=== PATIENT | female | born 2000 | race Caucasian/White ===

== ENCOUNTER 2024-09-19 11:58 | Emergency (ER) | payer OTHER, SELFPAY ==
[2024-09-19 12:02] VITALS: BP 137/89
[2024-09-19 12:33] VITALS: BMI 43.0
[2024-09-19 13:13] LABS: % Basophils 0.4 % (0-2); % Eosinophils 1.5 % (0-6); % Immature Granulocytes 0.4 % (0-0.5); % Lymphocytes 25.1 % (20.5-51.1); % Monocytes 6.6 % (1.7-9.3); Absolute Eosinophils 0.1 10^3/uL (0-0.7); Absolute Lymphocytes 2.1 10^3/uL (1.2-3.4); Absolute Monocytes 0.5 10^3/uL (0.1-0.6); Absolute Neutrophils 5.4 10^3/uL (1.4-6.5); Hematocrit 39.2 % (37.0-47.0); Hemoglobin 13.3 g/dL (12.0-16.0); Mean Corp Hgb Conc. 33.9 g/dL (33.0-37.0); Mean Corpuscular Hgb 28.5 pg (27.0-31.0); Mean Corpuscular Volume 84.1 fL (81.0-99.0); Mean Platelet Volume 8.8 fL (7.4-10.4); Nucleated Red Blood Cells % 0 %; Platelet Count 283 10^3/uL (130-400); Red Blood Cell Count 4.66 10^6/uL (4.20-5.40); Red Cell Dist. Width 12.4 % (11.5-14.5); White Blood Cell Count 8.2 10^3/uL (4.8-10.8)
[2024-09-19 13:25] LABS: HCG, Serum Qualitative Screen Negative
[2024-09-19 13:29] LABS: ALT (SGPT) 17 U/L (0-35); AST (SGOT) 19 U/L (14-36); Alkaline Phosphatase 65 U/L (38-126); Blood Urea Nitrogen 14 mg/dl (7-17); Calcium 9.5 mg/dl (8.4-10.2); Carbon Dioxide 22 mmol/L (22-30); Chloride 104 mmol/L (98-107); Estimated Creatinine Clearance > 125 ml/min; Glucose 106 mg/dl (70-99); Potassium 4.8 mmol/L (3.5-5.1); Sodium 140 mmol/L (135-145); Total Bilirubin 0.2 mg/dl (0.2-1.3); Total Protein 6.9 g/dl (6.3-8.2); eGFR > 60.00
[2024-09-19 13:36] VITALS: BP 124/90
--- NOTE | 2024-09-19 14:28 | ED.GENMED ---
History of Present Illness
General
Chief Complaint: Abdominal Symptoms
Source: patient
Time Seen by Provider: 09/19/24 12:15
History of Present Illness
History of Present Illness:
24-year-old female presents for evaluation of bright blood per rectum. Patient states that she is experienced blood when she had a bowel movement. There is normal stool as well as bright red blood. They are not admixed. No abdominal pain. No
nausea or vomiting. Patient does not take any oral anticoagulants.
Phy Exam
Physical Exam
Physical Exam:
General: Awake, Alert, Oriented X3. No acute distress.
Vitals: unremarkable
Head: Atraumatic
Eyes: Pupils equal, EOMI
Throat: Airway intact, no exudates
Neck: Trachea midline
Lungs: Clear and equal b/l
Heart: Regular rate, no murmurs
Abd: Soft, Nontender, No pulsatile mass
Rectal: Normal external exam, no blood or stool in the vault
Neuro: Nonfocal
Skin: Warm, dry, no rash
Extremities: pulses equal b/l, no edema
Course
Orders/Labs/Results
Orders:
Orders
09/19/24 12:57
Test Result ONCE
09/19/24 13:01
Complete Blood Count/With Diff Urgent
Comprehensive Metabolic Panel Urgent
HCG, Serum Qualitative Screen Urgent
Abnormal Lab Results
09/19/24
13:01
Glucose 106 H mg/dl
(70-99)
09/19/24 13:01
09/19/24 13:01
Vital Signs
Initial and Last Documented VS:
Initial Vital Signs
Temp Pulse Resp BP Pulse Ox
98 F 68 16 137/89 97
09/19/24 12:02 09/19/24 12:02 09/19/24 12:02 09/19/24 12:02 09/19/24 12:02
Last Documented Vital Signs
Temp Pulse Resp BP Pulse Ox
98 F 68 16 124/90 97
09/19/24 12:02 09/19/24 13:36 09/19/24 13:36 09/19/24 13:36 09/19/24 12:02
MDM/Problems Addressed
Differential Diagnosis Includes:
Anal fissure, internal hemorrhoids, colitis
MDM/Problems Addressed:
Patient has a very benign abdominal exam. Labs are unremarkable. Description of the blood is consistent with either fissure or internal hemorrhoid. No blood on rectal exam. Patient stable for discharge home and outpatient follow-up with GI.
Recommend stool softeners.
*Critical Care Note
Total Time (30-74mins, 75-104mins- exclusive of procedures): Not Applicable
ED Attending Note
-
Portions of this chart may have been created with voice recognition software.� Occasional wrong word or��sound alike� substitutions may have occurred due to the inherent limitations of voice recognition software.
Discharge Plan
Departure
Patient Disposition: Home (Routine Discharge)
Date of Disposition: 09/19/24
Time of Disposition: 14:28
Patient with high blood pressure during this ER visit?: No
Condition: Good
Discharge Problem:
Bright red rectal bleeding
Instructions: Hemorrhoids ED
Prescriptions:
No Action
spironolactone 100 mg Tablet
200 mg PO DAILY
propranolol 40 mg Tablet
40 mg PO DAILY
lorazepam 0.5 mg Tablet
0.5 mg PO DAILY PRN (Reason: . DIRECTED)
dextroamphetamine-amphetamine [Adderall XR] 30 mg Capsule,Extended Release 24hr
30 mg PO DAILY
propranolol 20 mg Tablet
20 mg PO .1530
dextroamphetamine-amphetamine [Adderall XR] 15 mg Capsule,Extended Release 24hr
15 mg PO .1530
desvenlafaxine succinate [Pristiq] 50 mg Tablet Extended Release 24 Hr
50 mg PO DAILY
magnesium glycinate 100 mg Tablet
200 mg PO DAILY
Zyrtec 10 mg Capsule
10 mg PO DAILY
lamotrigine [Lamictal XR] 250 mg Tablet Extended Release 24hr
250 mg PO DAILY
Vitamin D3 100 mcg (4,000 unit) Capsule
100 mcg PO DAILY
Vraylar 3 mg Capsule
3 mg PO DAILY
Control Pill
1 tab PO DAILY
Ib Guard
1 tab PO DAILY
Probiotic
1 tab PO DAILY
Referrals:
Bailey Holguin MD [Family Provider] -
Activity Restrictions/Additional Instructions:
Your labs are all normal. I suspect your bleeding is due to internal hemorrhoids or a anal fissure. I recommend you take stool softeners. Call for a follow up with your GI doctor.
Interventions
Interventions:
*Risk Screen - Suicide Last Done: 09/19/24 12:05
*Neglect/Abuse Screening Last Done: 09/19/24 12:05
ED- Fall Risk Assessment Last Done: 09/19/24 12:16
*ED COVID-19 Vaccine History Last Done: 09/19/24 12:04
*Nursing Disposition Last Done: 09/19/24 14:51
EY-Btpeot-Scgvxsaeja Assessment Last Done: 09/19/24 12:17
Discharge Date and Time
Discharge Date/Time: 09/19/24 14:51
Print Language: TURKMEN
== END 2024-09-19 14:51 | disposition home or self-care (01) ==
LOC: EMR 11:58
PROVIDERS: EMERGENCY PHYSICIAN Emergency Medicine; FAMILY PHYSICIAN Family Medicine
DX: K62.5 Hemorrhage of anus and rectum (principal)
CPT/HCPCS: 99283; 80053; 84703; 85025

== ENCOUNTER → 2024-10-21 15:02 | Outpatient (REF) | payer OTHER, SELFPAY | LOC: CLAB 15:02 | PROVIDERS: ATTENDING PHYSICIAN Podiatrist Foot & Ankle Surgery | DX: S92.422S Displaced fracture of distal phalanx of left great toe, sequela (principal) | CPT/HCPCS: 88304; 88311 ==

== ENCOUNTER 2024-10-22 13:32 | Emergency (ER) | payer OTHER, SELFPAY ==
[2024-10-22 13:35] VITALS: BP 158/94
--- NOTE | 2024-10-22 14:47 | ED.GENMED ---
History of Present Illness
General
Chief Complaint: Post Operative Problem(s)
Time Seen by Provider: 10/22/24 14:47
History of Present Illness
History of Present Illness:
TIME OF INITIAL ENCOUNTER: 2:50 PM
HPI: The patient had left great toe surgery through [facility] yesterday (Dr. Aguilar). She got the wound dressing wet while in the shower and was told to come here for dressing change. She denies any other symptoms or concerns. She has no pain.
EXAM:
GENERAL: Well appearing in no distress
HEENT: Moist oral mucosa
NEUROLOGIC: Excellent strength all extremities, no obvious coordination deficits
PSYCHIATRIC: Appropriate mental status, normal insight and judgement
EXTREMITIES: There is a 3 cm surgical wound in the midline of the left great toe
NUMBER AND COMPLEXITY OF PROBLEMS ADDRESSED AT THE ENCOUNTER
� Chronic conditions affecting care: IBS, PCOS, anxiety, bipolar disorder
� Acute Exacerbation and/or Progression of Chronic Illness: This is an acute problem
� Differential Diagnosis includes: Need for dressing change, postsurgical complication
AMOUNT AND/OR COMPLEXITY OF DATA TO BE REVIEWED AND ANALYZED
� I performed an independent evaluation of and my interpretation is:
EKG:
CT:
X-rays:
Laboratory Studies:
Other:
� Review of other/old records: I look for old records but I see no evidence of surgical note in [facility]
� Clinical information was obtained by an independent historian: I spoke to father at bedside
� Prescriptions/Medications Considered but not given:
� Further testing considered but not performed:
RISK OF COMPLICATIONS AND/OR MORBIDITY OR MORTALITY OF PATIENT MANAGEMENT
� Social determinants of health affecting care: Lives at home
� Discussion with other providers:
� Escalation of care including admission/observation vs risk of discharge considered: I removed the entire dressing and placed a new dry dressing including 4 x 4's and 2 separate Faye wraps along with an Chapo wrap and then
reapplied the boot. She has no evidence of infection.
ANY OTHER UPDATES:
Phy Exam
Physical Exam
Physical Exam:
See HPI
Course
Vital Signs
Initial and Last Documented VS:
Initial Vital Signs
Temp Pulse Resp BP Pulse Ox
36.7 C 81 18 158/94 95
10/22/24 13:35 10/22/24 13:35 10/22/24 13:35 10/22/24 13:35 10/22/24 13:35
Last Documented Vital Signs
Temp Pulse Resp BP Pulse Ox
36.7 C 81 18 158/94 95
10/22/24 13:35 10/22/24 13:35 10/22/24 13:35 10/22/24 13:35 10/22/24 13:35
*Critical Care Note
Total Time (30-74mins, 75-104mins- exclusive of procedures): Not Applicable
ED Attending Note
-
Portions of this chart may have been created with voice recognition software.� Occasional wrong word or��sound alike� substitutions may have occurred due to the inherent limitations of voice recognition software.
Discharge Plan
Departure
Prescriptions:
No Action
spironolactone 100 mg Tablet
200 mg PO DAILY
propranolol 40 mg Tablet
40 mg PO DAILY
lorazepam 0.5 mg Tablet
0.5 mg PO DAILY PRN (Reason: . DIRECTED)
dextroamphetamine-amphetamine [Adderall XR] 30 mg Capsule,Extended Release 24hr
30 mg PO DAILY
propranolol 20 mg Tablet
20 mg PO .1530
dextroamphetamine-amphetamine [Adderall XR] 15 mg Capsule,Extended Release 24hr
15 mg PO .1530
desvenlafaxine succinate [Pristiq] 50 mg Tablet Extended Release 24 Hr
50 mg PO DAILY
magnesium glycinate 100 mg Tablet
200 mg PO DAILY
Zyrtec 10 mg Capsule
10 mg PO DAILY
lamotrigine [Lamictal XR] 250 mg Tablet Extended Release 24hr
250 mg PO DAILY
Vitamin D3 100 mcg (4,000 unit) Capsule
100 mcg PO DAILY
Vraylar 3 mg Capsule
3 mg PO DAILY
Control Pill
1 tab PO DAILY
Ib Guard
1 tab PO DAILY
Probiotic
1 tab PO DAILY
Interventions
Interventions:
*Risk Screen - Suicide Last Done: 10/22/24 13:35
*General Assessment Last Done: 10/22/24 13:35
*Neglect/Abuse Screening Last Done: 10/22/24 13:35
Discharge Date and Time
Print Language: VIETNAMESE
== END 2024-10-22 15:13 | disposition home or self-care (01) ==
LOC: EMR 13:32
PROVIDERS: EMERGENCY PHYSICIAN Emergency Medicine; FAMILY PHYSICIAN Family Medicine
DX: Z48.01 Encounter for change or removal of surgical wound dressing (principal)
CPT/HCPCS: 99281

== ENCOUNTER 2025-01-21 21:33 | Emergency (ER) | payer OTHER, SELFPAY ==
[2025-01-21 21:35] VITALS: BP 155/82
[2025-01-21 22:59] VITALS: BMI 45.2
[2025-01-21 23:00] VITALS: BP 134/77
--- NOTE | 2025-01-21 23:25 | ED.GENMED ---
History of Present Illness
General
Chief Complaint: Back Pain
Time Seen by Provider: 01/21/25 22:49
History of Present Illness
History of Present Illness:
24-year-old female history of headaches, IBS, bipolar, PCOS presenting with low back pain for the past 1 week. Patient states that symptoms worsened over the past 1 to 2 days prompting ED arrival. Patient states that pain starts in her low back
and radiates to her right leg. Patient denies numbness, weakness, tingling, incontinence, fever or history of IV drug use. 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 Patient denies any falls or trauma.
Patient denies any recent heavy lifting. Patient states that today she started having difficulty standing up secondary to pain prompting ED evaluation.
Phy Exam
Physical Exam
Physical Exam:
General: Alert, no acute distress
Head: NCAT
Eyes: clear conjunctiva
Neck: supple
Cardiac: regular rate and rhythm, no murmur
Lungs: clear to auscultation bilaterally. No wheezes, rales, or rhonchi. Speaking full unlabored sentences. No respiratory distress.
Abdomen: soft, nondistended nontender. No rebound or guarding.
MSK: no lower extremity edema bilaterally. No deformity. No midline thoracic/lumbar tenderness to palpation. Diffuse lower bilateral paraspinal tenderness palpation
Skin: warm, dry
Neuro: Alert and oriented x3. 5 out of 5 strength bilateral hip/knee/ankle flexion and extension. No saddle paresthesias.
Course
Orders/Labs/Results
Orders:
Orders
01/21/25 23:19
Acetaminophen [Tylenol] 1,000 mg PO NOW STA
Cyclobenzaprine HCl [Flexeril] 10 mg PO NOW STA
Ibuprofen [Motrin] 800 mg PO NOW STA
Lidocaine [Lidocaine 4% Patch] 1 patch TOPICAL ONCE STA
Apply Lidocaine patch(s) to:: low back
Vital Signs
Initial and Last Documented VS:
Initial Vital Signs
Temp Pulse Resp BP Pulse Ox
98.3 F 82 15 155/82 97
01/21/25 21:35 01/21/25 21:35 01/21/25 21:35 01/21/25 21:35 01/21/25 21:35
Last Documented Vital Signs
Temp Pulse Resp BP Pulse Ox
98.3 F 82 15 134/77 97
01/21/25 21:35 01/21/25 21:35 01/21/25 21:35 01/21/25 23:00 01/21/25 23:30
MDM/Problems Addressed
MDM/Problems Addressed:
24-year-old female presenting with low back pain starting 1 week ago worse over the past 2 days. Patient states that she is unable to fully stand up today secondary to pain. Patient states she still able to walk. Patient denies numbness,
weakness, tingling, incontinence or urinary retention. On exam, patient is neurologically intact. No red flags signs or symptoms that warrant emergent imaging in the emergency department today. Suspect radiculopathy given patient states it
radiates down her right leg. Advised to take Tylenol/Motrin/Flexeril/use lidocaine patch, will start on Medrol Dosepak. Discussed return precautions. Stable for discharge with PCP follow up outpatient
*Critical Care Note
Total Time (30-74mins, 75-104mins- exclusive of procedures): Not Applicable
ED Attending Note
-
Portions of this chart may have been created with voice recognition software.� Occasional wrong word or��sound alike� substitutions may have occurred due to the inherent limitations of voice recognition software.
Discharge Plan
Departure
Patient Disposition: Home (Routine Discharge)
Date of Disposition: 01/21/25
Time of Disposition: 23:21
Patient with high blood pressure during this ER visit?: Yes
Discharge Problem:
Low back pain
Instructions: Low Back Pain (DC)
Prescriptions:
New
cyclobenzaprine 5 mg tablet
5 mg PO TID PRN (Reason: spasm) Qty: 30 0RF
methylprednisolone [Medrol ([place])] 4 mg tablets,dose pack
4 mg PO ONCE Qty: 21 0RF
No Action
spironolactone 100 mg Tablet
200 mg PO DAILY
propranolol 40 mg Tablet
40 mg PO DAILY
lorazepam 0.5 mg Tablet
0.5 mg PO DAILY PRN (Reason: . DIRECTED)
dextroamphetamine-amphetamine [Adderall XR] 30 mg Capsule,Extended Release 24hr
30 mg PO DAILY
propranolol 20 mg Tablet
20 mg PO .1529
dextroamphetamine-amphetamine [Adderall XR] 15 mg Capsule,Extended Release 24hr
15 mg PO .1529
desvenlafaxine succinate [Pristiq] 50 mg Tablet Extended Release 24 Hr
50 mg PO DAILY
magnesium glycinate 100 mg Tablet
200 mg PO DAILY
Zyrtec 10 mg Capsule
10 mg PO DAILY
lamotrigine [Lamictal XR] 250 mg Tablet Extended Release 24hr
250 mg PO DAILY
Vitamin D3 100 mcg (4,000 unit) Capsule
100 mcg PO DAILY
Vraylar 3 mg Capsule
3 mg PO DAILY
Control Pill
1 tab PO DAILY
Ib Guard
1 tab PO DAILY
Probiotic
1 tab PO DAILY
Referrals:
[facility] [Outside]
Stand Alone Forms: Return to Work
Activity Restrictions/Additional Instructions:
Take Tylenol 975 mg every 6 hours and/or ibuprofen 800 mg every 8 hours with food as needed for pain
Take Flexeril as needed for muscle spasms
Purchase lidocaine patch [id number] at local pharmacy. Apply to low back. Change every 12 hours
Take Dosepak as prescribed
Follow-up with your primary care doctor 1 to 2 days
Return to the emergency department for numbness, weakness, tingling, incontinence or new/worsening
Interventions
Interventions:
*General Assessment Last Done: 01/21/25 21:35
*Neglect/Abuse Screening Last Done: 01/21/25 21:35
*ED- Fall Risk Assessment Last Done: 01/21/25 23:05
*ED COVID-19 Vaccine History Last Done: 01/21/25 21:35
*Nursing Disposition Last Done: 01/21/25 23:49
ED-Musculoskeletal Assessment Last Done: 01/21/25 22:59
Discharge Date and Time
Discharge Date/Time: 01/21/25 23:51
Print Language: BENGALI
[2025-01-21] MEDS: TYLENOL 1000 MG PO (23:29)
[2025-01-21] MEDS: MOTRIN 800 MG PO (23:30)
[2025-01-21] MEDS: LIDOCAINE 4% PATCH 1 PATCH TOPICAL (23:31)
[2025-01-21] MEDS: FLEXERIL 10 MG PO (23:31)
== END 2025-01-21 23:51 | disposition home or self-care (01) ==
LOC: EMR 21:33
PROVIDERS: EMERGENCY PHYSICIAN Emergency Medicine; FAMILY PHYSICIAN Family Medicine
DX: M54.50 Low back pain, unspecified (principal); R51.9 Headache, unspecified; K58.9 Irritable bowel syndrome, unspecified; F31.9 Bipolar disorder, unspecified; E28.2 Polycystic ovarian syndrome
CPT/HCPCS: 99282

== ENCOUNTER 2025-02-23 06:31 | Day surgery (SDC) | payer OTHER, SELFPAY | END 2025-02-23 15:49 | disposition home or self-care (01) | LOC: GI 06:31 | PROVIDERS: ATTENDING PHYSICIAN Internal Medicine Gastroenterology; FAMILY PHYSICIAN Family Medicine | DX: K62.5 Hemorrhage of anus and rectum (principal); R19.4 Change in bowel habit; K64.8 Other hemorrhoids | CPT/HCPCS: 45378 ==

== ENCOUNTER 2025-09-25 06:20 | Day surgery (SDC) | payer BC, SELFPAY | END 2025-09-25 14:33 | disposition home or self-care (01) | LOC: GI 06:20 | PROVIDERS: ATTENDING PHYSICIAN Internal Medicine Gastroenterology | DX: R12 Heartburn (principal); R11.2 Nausea with vomiting, unspecified; K31.89 Other diseases of stomach and duodenum; K29.50 Unspecified chronic gastritis without bleeding; K90.0 Celiac disease | CPT/HCPCS: 43239; 88305; 88342 ==